=== PATIENT | female | born 2000 | race Caucasian/White ===

== ENCOUNTER → 2021-01-25 16:27 | Outpatient (BNVA) | payer MEDICAID, SELFPAY | PROVIDERS: Family Provider Family Medicine; PCP Registered Nurse; Visit Provider Nurse Practitioner Family | DX: R19.8 Other specified symptoms and signs involving the digestive system and abdomen (principal); B37.3 Candidiasis of vulva and vagina | CPT/HCPCS: 81000 ==

== ENCOUNTER → 2022-08-06 14:02 | Outpatient (BNVA) | payer OTHER, MEDICAID, SELFPAY | PROVIDERS: Family Provider Family Medicine; PCP Registered Nurse; Visit Provider Nurse Practitioner Family | DX: N39.0 Urinary tract infection, site not specified (principal) | CPT/HCPCS: 81000; 87086 ==

== ENCOUNTER → 2023-08-29 14:40 | Outpatient (BNVA) | payer MEDICAID, SELFPAY | PROVIDERS: Family Provider Family Medicine; PCP Registered Nurse; Visit Provider Nurse Practitioner Family | DX: L02.91 Cutaneous abscess, unspecified (principal) | CPT/HCPCS: 87070; 87077; 87184 ==

== ENCOUNTER → 2024-07-10 10:46 | Outpatient (BNVA) | payer MEDICAID, SELFPAY | PROVIDERS: Family Provider Family Medicine; PCP Nurse Practitioner Family; Visit Provider Nurse Practitioner Family | DX: M79.644 Pain in right finger(s) (principal) | CPT/HCPCS: 73140 ==